=== PATIENT | male | born 1985 | race African-American/Black ===

== ENCOUNTER 2018-10-05 07:40 | Emergency (ER) | payer MEDICAID ==
[~2018-10-05] VITALS: Ht 172.7 cm; Wt 111.0 kg
[2018-10-05 08:07] VITALS: BP 167/89
[2018-10-05] MEDS ORDERED: HYDROCODONE/ACETAMINOPHEN 5/325MG TABLET PO ONE (08:30)
== END 2018-10-05 10:30 | disposition home or self-care (01) ==
LOC: ER 07:40
DX: S82.142A Displaced bicondylar fracture of left tibia, initial encounter for closed fracture (principal); S82.492A Other fracture of shaft of left fibula, initial encounter for closed fracture; X58.XXXA Exposure to other specified factors, initial encounter; Y93.02 Activity, running; Y92.89 Other specified places as the place of occurrence of the external cause
CPT/HCPCS: 29505; 73560; 99283; Z7610